=== PATIENT | male | born 1940 | race Caucasian/White ===

== ENCOUNTER 2018-12-29 21:14 | Inpatient (IN) | payer MEDICARE ==
[2018-12-30] MEDS ORDERED: Magnesium Hydroxide (MOM) 30 mL UDC PO PRN (05:31)
[2018-12-30] MEDS ORDERED: Maalox 30 mL Cup PO PRN (05:31)
[2018-12-30 05:33] VITALS: BP 167/69
[2018-12-30] MEDS: Multivitamin Tab PO SCH (09:50)
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
[2018-12-31] MEDS: Multivitamin Tab PO SCH (08:47)
--- NOTE | 2018-12-31 20:42 | Progress Notes ---
DATE: 12/31/2018 SUBJECTIVE: A 78-year-old male coming in from [facility], aggressive behaviors, is confused, hallucinating, is more amenable to speaking with me today. He states that he was hallucinating and "seeing visions," down, depressed, withdrawn, states he is not doing well, seems to be mumbling to self. Poor memory, ruminative, asking same questions over and over again, and agitated at times. The patient wants to go, but it is unclear where he is going to go. States he went to a rehab in the past that he love, but states that it close down. Ongoing symptoms, safety concerns. Medications were noted. We will continue to monitor. [facility]# [id number]
[2019-01-01] MEDS ORDERED: GLUCAGON HCl 1 MG KIT IM PRN (09:05)
[2019-01-01] MEDS ORDERED: Dextrose 50% 50 mL Abboject IVP PRN (09:05)
[2019-01-01] MEDS: Multivitamin Tab PO SCH (09:24)
--- NOTE | 2019-01-01 09:40 | History & Physical ---
ADMIT DATE: PATIENT'S IDENTIFICATION: A 78-year-old male. REQUESTING PHYSICIAN: Dr. Capone. CHIEF COMPLAINT: Unable to get meaningful history from the patient. HISTORY OF PRESENT ILLNESS: A 78-year-old resident of group home has a significant history of CVA, dementia, gout, hyperlipidemia, BPH and hypertension, brought into the Emergency Room at [facility] for evaluation of increasing agitation and hallucination. The patient was evaluated by Emergency Room MD and subsequently advised to be admitted to [facility]. The patient is now being admitted. I am unable to get meaningful history from the patient and entire history I received from the patient, reviewing the chart, talking to the patient's assigned nurse. PAST MEDICAL HISTORY: Remarkable for: 1. Diabetes. 2. Hypertension. 3. Hyperlipidemia. 4. BPH. 5. Psychotic disorder. 6. Dementia. 7. DJD. 8. Gout. MEDICATIONS: At the time of transfer, Plavix, Actos, Jardiance, Lantus, fenofibrate, Zetia, Colcrys, acarbose, Seroquel, Lopressor, Apresoline, cilostazol, atorvastatin, and aspirin. SOCIAL HISTORY: The patient is a resident of group home. ALLERGIES: AMOXICILLIN, IODINE and PENICILLIN. FAMILY MEDICAL HISTORY: Unavailable. REVIEW OF SYSTEMS: I am unable to get meaningful history from the patient due to current condition. PHYSICAL EXAMINATION: GENERAL: The patient is alert, awake, lying in the bed without any acute distress. VITAL SIGNS: Temperature 97.6, pulse 68, respiratory rate 18, blood pressure 151/60. HEENT: Normocephalic, atraumatic. Extraocular muscles are intact. Tongue was pink and coated. Poor dentition noted. NECK: Supple. No JVD. No hepatojugular reflux. No lymphadenopathy, thyromegaly or carotid bruit. HEART: Both heart sounds are regular. No S3, no S4. CHEST AND LUNGS: Equal in expansion. No expiratory wheezing. ABDOMEN: Soft. No guarding, no rigidity. Bowel sounds present. No palpable mass. EXTREMITIES: No edema, no cyanosis. Peripheral pulses were +1. No calf tenderness. Diffuse osteoarthritic changes noted. NEUROLOGIC: The patient is alert, but not following any commands. Some degree of spasticity throughout upper and lower extremities noted with some weakness. Unable to do complete neurological examination due to current condition. AVAILABLE DIAGNOSTIC DATA: Performed at [facility] has been reviewed. Total time reviewing the records approximately 5 minutes. CLINICAL IMPRESSION: 1. Psychotic disorder exacerbation. 2. 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 3. Diabetes mellitus. 4. Hypertension. 5. Hyperlipidemia. 6. Gout. 7. Degenerative joint disease. 8. Benign prostatic hypertrophy. 9. High risk for fall. 10. History of carotid artery stenting. 11. Peripheral neuropathy. PLAN: Psychotic evaluation and management deferred to psychiatrist. The patient will be resumed on his home medication for underlying problem, which include hyperlipidemia, peripheral vascular disease, CVA, psychotic disorder, diabetes, hypertension along with peripheral vascular disease. The patient will be provided fall precautions, nutritional support, general nursing care along with appropriate home medication reconciliation. We will continue to follow this patient during his stay in the hospital. I sincerely thank you, Dr. Cristal Villanueva for giving me the opportunity to participate in patient of yours. JOB# [id number]
[2019-01-01] MEDS: INSULIN LISPRO SLIDING SCALE 100 UNITS/ML UNIT SUBQ SCH ×3 (11:38→21:22)
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
[2019-01-02] MEDS: INSULIN LISPRO SLIDING SCALE 100 UNITS/ML UNIT SUBQ SCH ×4 (06:54→21:50)
[2019-01-02] MEDS: Multivitamin Tab PO SCH (11:34)
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
[2019-01-03] MEDS: INSULIN LISPRO SLIDING SCALE 100 UNITS/ML UNIT SUBQ SCH ×5 (06:56→21:45)
[2019-01-03] MEDS: Multivitamin Tab PO SCH (09:29)
--- NOTE | 2019-01-03 22:15 | Progress Notes ---
DATE: 01/03/2019 SUBJECTIVE: The patient was seen and evaluated. The patient's chart reviewed. Nursing staff reported him mostly disengaged. Today on [id number] evaluation, the patient reports that he is waiting for the FBI agent to come and interview him. MENTAL STATUS EXAMINATION: Disorganized, suspicious. ASSESSMENT AND PLAN: Neurocognitive impairment, continues to present delusion as evident, reporting that he is waiting for the FBI to come and interview him. We will continue with primary psychiatric treatment plan and goals of medication. Continue to reach steady state. No oversedation, EPS or Tardive dyskinesia noted with Seroquel. JOB# [id number]
[2019-01-04] MEDS: INSULIN LISPRO SLIDING SCALE 100 UNITS/ML UNIT SUBQ SCH ×3 (06:48→17:45)
[2019-01-04] MEDS: Multivitamin Tab PO SCH (09:59)
--- NOTE | 2019-01-05 00:05 | Progress Notes ---
DATE: 01/04/2019 SUBJECTIVE: The patient in the hospital, mostly quiet, withdrawn, believing he is in "[facility]." He is not completing his sentences, pretty disorganized, not really able to tell me much information. He told Dr. Gordon he was waiting for the FBI yesterday. Ongoing delusions, perceptual disturbances, still on dosing of Seroquel. PLAN: We will continue to monitor. I will slowly titrate the dose given his ongoing psychotic symptoms, paranoias. JOB# [id number]
[2019-01-05] MEDS: INSULIN LISPRO SLIDING SCALE 100 UNITS/ML UNIT SUBQ SCH ×4 (06:42→20:51)
[2019-01-05] MEDS: Multivitamin Tab PO SCH (08:35)
[2019-01-06] MEDS: Hydrocodone/APAP 10 mg/325 mg Tab PO PRN ×2 (00:08→21:33)
[2019-01-06] MEDS: INSULIN LISPRO SLIDING SCALE 100 UNITS/ML UNIT SUBQ SCH ×5 (06:41→20:36)
[2019-01-06] MEDS: Multivitamin Tab PO SCH (09:15)
--- NOTE | 2019-01-06 13:59 | Diagnostic Imaging Report ---
Right knee (3 views) HISTORY: Pain, trauma Medial joint space narrowing. Hypertrophic degenerative spur formation seen about the medial femoral condyle. Spur formation also noted about the medial lateral tibial plateau regions. Degenerative changes noted along the posterior margin of the patella. Question joint effusion. Chondrocalcinosis is seen most likely degenerative. Extensive severe vascular calcification is noted. No acute abnormalities. No fractures. IMPRESSION: 1. Relatively severe degenerative joint disease 2. Atherosclerotic vascular changes 3. Question joint effusion
--- NOTE | 2019-01-06 13:59 | Diagnostic Imaging Report ---
Left knee (3 views) HISTORY: Pain, trauma Degenerative changes are seen with hypertrophic spur formation noted about the lateral femoral condyle. Due to flexion, limited evaluation of the joint spaces. No acute abnormalities. No fractures. Severe extensive vascular calcification is noted. IMPRESSION: 1. Limited exam due to flexion 2. No acute bony abnormalities 3. Relatively severe degenerative joint disease 4. Extensive atherosclerotic vascular calcification
--- NOTE | 2019-01-06 16:49 | Progress Notes ---
DATE: SUBJECTIVE: Chart reviewed and the patient interviewed. Also discussed the patient's condition with the staff and reviewed records and labs. The patient seems to be slightly calmer and he is still trying to get out of bed, but not as much. The patient also is still agitated at times, but in general, he tends to stay by himself. Also still has disorganized thoughts and unable to make his needs known. He also is still during my interview was pointing out to imaginary objects towards the door. Otherwise, the patient is compliant with taking medications and no side effects of medications. ASSESSMENT: The patient is still psychotic and confused. TREATMENT PLAN: Continue to monitor behavior and condition closely. The patient also continues to take Seroquel in a dose of 37.5 mg twice a day with no side effects. We will continue same dose and continue adjusting medications and work on behavioral modification. JOB# [id number]
--- NOTE | 2019-01-06 22:26 | Progress Notes ---
DATE: 01/06/2019 PSYCHIATRIC PROGRESS NOTE SUBJECTIVE: Chart reviewed and the patient interviewed. Also discussed the patient's condition with the staff and reviewed records and labs. The patient continues to be confused and is still rambling and has disorganized thoughts. The patient also is nonsensical and still forgetful and is delusional. Also, needs redirections and needs close monitoring because of disorganized thoughts. The patient also is complaining of pain in both knees with swelling in both knees. The stat x-ray was done yesterday and came back negative; no fracture or injuries to both knees. ASSESSMENT: The patient is still confused and psychotic. TREATMENT PLAN: Continue to monitor his behavior and condition closely. Also, we will increase Seroquel to 50 mg twice a day and we will continue to follow up closely. [facility]# [id number]
--- NOTE | 2019-01-07 01:38 | Progress Notes ---
DATE: 01/06/2019 MEDICAL PROGRESS NOTE PATIENT'S IDENTIFICATION: A 78-year-old male. SUBJECTIVE: The patient seen and examined. I received a call last night that the patient was having excruciating pain on his both knees. Apparently, there was no history of fall. X-rays of both knees were ordered, which were unremarkable for any fracture. The patient is currently lying comfortably. The movement of his both lower extremities, the patient complains of pain. The patient remained hemodynamically stable and there was no active bleeding. The patient was recently placed on antibiotic for urinary tract infection. ALLERGIES: The patient is allergic to PENICILLIN. PHYSICAL EXAMINATION: VITAL SIGNS: Temperature 98.9, pulse is 92, respiratory rate 18, blood pressure 158/85. HEENT: No facial asymmetry. NECK: Supple, no JVD. HEART: Regular. CHEST: Lung equal in expansion, no expiratory wheezing. ABDOMEN: Soft. Bowel sounds are present. No palpable mass. EXTREMITIES: Bilateral knee swelling noted more on the left than right with some old bruising also noted. No calf tenderness. LABORATORY DATA: None. X-rays of both knees, preliminary report is no fracture. CLINICAL IMPRESSION: 1. Bilateral knee pain in the view of gout history and no apparent fall, cannot rule out acute gout since the fracture is ruled out. 2. Urinary tract infection. 3. Hypertension. 4. Hyperlipidemia. 5. Dementia. 6. Psychotic disorder. PLAN: In the view of his acute bilateral knee pain, I will hold his Colcrys and put him on prednisone for 5 days. We will monitor the blood sugar while the patient is on prednisone and we will reevaluate the patient later. The patient will have ESR, uric acid, BMP, and magnesium will be checked as well. We will continue other medication as the patient is receiving and will continue to follow this patient during the stay in this hospital. Medication list has been reviewed with assigned nurse as well. Treatment plan has been discussed. JOB# [id number]
[2019-01-07] MEDS: INSULIN LISPRO SLIDING SCALE 100 UNITS/ML UNIT SUBQ SCH ×4 (06:36→20:42)
[2019-01-07] MEDS: Multivitamin Tab PO SCH (08:33)
[2019-01-07] MEDS: Hydrocodone/APAP 10 mg/325 mg Tab PO PRN (20:48)
--- NOTE | 2019-01-07 21:09 | Progress Notes ---
DATE: 01/07/2019 Chart reviewed and the patient interviewed. Also, discussed the patient's condition with the staff and reviewed records and labs. The patient continues to be confused and restless. The patient also still seems to be paranoid, and he is still unable to carry on coherent conversation and is nonsensical during the interview. The patient also is still complaining of pain in his knees, but not as before, and Dr. Simmons ordered to check his uric acid to rule out gout and ordered more labs yesterday and results are pending. At the same time, the patient seems to be slightly calmer since the Seroquel increased to 50 mg twice a day. We will continue same dose, and we will continue to follow up closely. JOB# [id number]
[2019-01-08] MEDS: Hydrocodone/APAP 10 mg/325 mg Tab PO PRN (06:31)
[2019-01-08] MEDS: INSULIN LISPRO SLIDING SCALE 100 UNITS/ML UNIT SUBQ SCH ×4 (06:32→20:30)
[2019-01-08] MEDS: Multivitamin Tab PO SCH (08:25)
[2019-01-08] MEDS ORDERED: Insulin Glargine 100 units/ml 10ml Vial SUBQ SCH (21:00)
--- NOTE | 2019-01-09 02:02 | Progress Notes ---
DATE: SUBJECTIVE: Chart reviewed and the patient interviewed. Also discussed the patient's condition with the staff and reviewed records and labs. The patient is still confused and is still restless. Also, still trying to get out of the bed in the middle of the night, exposing himself to dangers of falling down. He also is still complaining of pain in his knees. Otherwise, the patient is compliant with taking his medications. He is still talking to self. ASSESSMENT: The patient is still confused and psychotic. TREATMENT PLAN: Continue to monitor behavior and condition closely. Also, continue Seroquel 50 mg twice a day and continue to follow up closely. JOB# [id number]
[2019-01-09] MEDS: INSULIN LISPRO SLIDING SCALE 100 UNITS/ML UNIT SUBQ SCH ×4 (06:59→21:01)
[2019-01-09] MEDS: Multivitamin Tab PO SCH (08:43)
[2019-01-09] MEDS: Insulin Glargine 100 units/ml 10ml Vial SUBQ SCH (21:02)
--- NOTE | 2019-01-09 22:49 | Progress Notes ---
DATE: SUBJECTIVE: Chart reviewed and patient interviewed. Also discussed patient's condition with the staff and reviewed records and labs. The patient still has periods of irritability and confusion. The patient also is still rambling. The patient also is complaining of pain in his knees. He also still thinks that he is in a [employer] party and still delusional. Otherwise, patient is compliant with taking medications with no side effects of medications. ASSESSMENT: The patient is still delusional and confused and needs close monitoring. TREATMENT PLAN: Continue monitoring behavior and condition and continue to follow up. JOB# [id number]
[2019-01-10] MEDS: INSULIN LISPRO SLIDING SCALE 100 UNITS/ML UNIT SUBQ SCH ×4 (06:48→21:10)
[2019-01-10] MEDS: Multivitamin Tab PO SCH (08:40)
[2019-01-10] MEDS: Insulin Glargine 100 units/ml 10ml Vial SUBQ SCH (21:09)
[2019-01-11] MEDS: INSULIN LISPRO SLIDING SCALE 100 UNITS/ML UNIT SUBQ SCH ×4 (06:40→20:57)
--- NOTE | 2019-01-11 07:56 | Progress Notes ---
DATE: SUBJECTIVE: Chart reviewed and the patient interviewed. Also discussed the patient's condition with the staff and reviewed records and labs. The patient is still confused and anxious. The patient also still has episodes of trying to get out of bed and exposing himself to dangers of falling. He also still monitored closely because of his paranoia and restlessness. Otherwise, the patient continued to take Seroquel 50 mg twice a day with no side effects. ASSESSMENT: The patient is still confused and agitated. TREATMENT PLAN: Continue monitoring behavior and medications and working on discharge plans. JOB# [id number]
[2019-01-11] MEDS: Multivitamin Tab PO SCH (08:21)
[2019-01-11] MEDS: Insulin Glargine 100 units/ml 10ml Vial SUBQ SCH (20:56)
--- NOTE | 2019-01-11 21:28 | Progress Notes ---
DATE: 01/11/2019 SUBJECTIVE: Chart reviewed and the patient interviewed. Also discussed the patient's condition with the staff and reviewed records and labs. The patient continued to be confused and is still actively hallucinating. The patient also is yelling and screaming and have difficulty following directions and did not sleep most of last night. The patient also is still in irritable and angry mood. The patient also having difficulty expressing himself or seeing his needs. Otherwise, the patient continued to comply with taking her medications with no side effects. The patient is disheveled and poor eye contact and angry and restless. ASSESSMENT: The patient is still psychotic and agitated and still can be dangerous to others. TREATMENT PLAN: Continue to monitor his condition and behavior closely. Also, increase Seroquel to 37.5 mg twice a day and 100 mg at bedtime. Hopefully, that will help the patient sleep better at night and to be calmer during the day and we will continue to follow up. Also, working on discharge plans with top case assembler. JOB# [id number]
--- NOTE | 2019-01-11 22:58 | Progress Notes ---
DATE: 01/11/2019 PATIENT'S IDENTIFICATION: A 78-year-old. SUBJECTIVE: The patient seen and examined. The patient is sitting in the chair. The patient does not provide a meaningful history. Discussed with nursing staff, no new event has been reported. The patient's blood sugar morning is 139. PHYSICAL EXAMINATION: VITAL SIGNS: Today temperature 98, pulse is 71, respiratory rate 18, blood pressure 103/63. HEENT: No facial asymmetry. NECK: Supple, no JVD. HEART: Both heart sounds are regular. CHEST AND LUNGS: Equal in expansion, no expiratory wheezing. ABDOMEN: Soft. Bowel sounds present. No palpable mass. EXTREMITIES: No edema. NEUROLOGIC: Alert, awake, follows commands. CLINICAL AVAILABLE DIAGNOSTIC DATA: Blood sugar this morning is 139. Chemistry panel remarkable for blood sugar of 290, BUN and creatinine is 34 and creatinine is 1.21, test was done on 01/06/2019. AST, ALT, SGOT, SGPT is 175, 108. Uric acid is 2.4, magnesium 1.5, ESR 105. CLINICAL IMPRESSION: 1. Acute bilateral knee pain significantly improved with prednisone therapy. The patient currently remained asymptomatic. 2. Diabetes mellitus with elevated blood sugar. 3. Hypertension. 4. Abnormal liver function tests. 5. Urinary tract infection. 6. Hyperlipidemia. 7. Degenerative joint disease. 8. Psychotic disorder. 9. Abnormal liver function tests. PLAN: Discontinue Lipitor in the presence of abnormal liver function tests for now. Continue other medication as prescribed. The patient's uric acid was reported normal at this time. I will hold the patient's on allopurinol therapy for now. The patient will be followed by us during his stay in the hospital. We will continue medications for underlying problem. Continue aspirin, Plavix, Lantus, Humalog insulin, Ativan, Cozaar, Toprol, Macrobid and Flomax for now. Psychiatric evaluation and management deferred to psychiatrist. Care plan has been reviewed and discussed with staff. JOB# [id number]
[2019-01-12] MEDS: INSULIN LISPRO SLIDING SCALE 100 UNITS/ML UNIT SUBQ SCH ×4 (06:42→20:45)
[2019-01-12] MEDS: Multivitamin Tab PO SCH (09:11)
[2019-01-12] MEDS: Insulin Glargine 100 units/ml 10ml Vial SUBQ SCH (20:45)
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
[2019-01-13] MEDS: INSULIN LISPRO SLIDING SCALE 100 UNITS/ML UNIT SUBQ SCH ×4 (07:03→20:58)
[2019-01-13] MEDS: Multivitamin Tab PO SCH (09:48)
[2019-01-13] MEDS ORDERED: Hydrocodone/APAP 10 mg/325 mg Tab PO PRN (19:19)
[2019-01-13] MEDS: Insulin Glargine 100 units/ml 10ml Vial SUBQ SCH (20:57)
--- NOTE | 2019-01-13 22:26 | Progress Notes ---
DATE: 01/13/2019 SUBJECTIVE: Chart reviewed and the patient interviewed. Also discussed the patient's condition with the staff and reviewed records and labs. The patient continued to be confused and restless. The patient also still has disorganized thoughts. His thought processes are circumstantial and flight of ideas and nonsensical. Also is still restless. The patient also is still having mood swings. The patient also did not sleep most of last night. On the other hand, the patient is complaining of pain in his knees are less and now he is off [place]. ASSESSMENT: The patient is still agitated and irritable and angry mood. TREATMENT PLAN: Continue to monitor behavior and condition closely. Also, continue working on his poor impulse control. Also, we will change Seroquel to 37.5 mg twice a day and 125 mg at bedtime to help with his agitation and irritability as well as to help with his insomnia. [facility]# [id number]
[2019-01-14] MEDS: INSULIN LISPRO SLIDING SCALE 100 UNITS/ML UNIT SUBQ SCH ×4 (06:44→21:06)
[2019-01-14] MEDS: Multivitamin Tab PO SCH (08:54)
[2019-01-14] MEDS: Insulin Glargine 100 units/ml 10ml Vial SUBQ SCH (21:05)
--- NOTE | 2019-01-14 23:12 | Progress Notes ---
DATE: 01/14/2019 Chart reviewed and the patient interviewed. Also discussed the patient's condition with the staff and reviewed records and labs. The patient continued to be confused and is still suspicious and paranoid. The patient also has unpredictable behavior. The patient slept only 4 hours last night and woke up yelling and screaming and agitating other patients. The patient also is still having mood swings. Otherwise, the patient is compliant with taking his medications. ASSESSMENT: The patient is still aggressive and is still in angry mood. TREATMENT PLAN: Continue monitoring behavior and condition closely and continue adjusting psychotropic medications. Also, working on behavioral modification and has poor impulse control. JOB# [id number]
[2019-01-15] MEDS: INSULIN LISPRO SLIDING SCALE 100 UNITS/ML UNIT SUBQ SCH ×4 (06:31→21:12)
[2019-01-15] MEDS: Multivitamin Tab PO SCH (09:03)
[2019-01-15] MEDS ORDERED: Menthol/Zinc Oxide Oint 113gm Tube TP PRN (16:55)
[2019-01-15] MEDS: Insulin Glargine 100 units/ml 10ml Vial SUBQ SCH (21:11)
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
[2019-01-16] MEDS: INSULIN LISPRO SLIDING SCALE 100 UNITS/ML UNIT SUBQ SCH ×4 (06:33→20:42)
[2019-01-16] MEDS: Multivitamin Tab PO SCH (09:54)
[2019-01-16] MEDS: Insulin Glargine 100 units/ml 10ml Vial SUBQ SCH (20:42)
--- NOTE | 2019-01-17 04:13 | Progress Notes ---
DATE: 01/16/[address] Villanueva. SUBJECTIVE: Overnight nursing staff reporting he continues to be easily unpredictable, needs a lot of redirection, easily irritable and easily agitated. Today on [id number] evaluation, he is observed to be screaming and yelling in the Mary chair without stimulation. Upon approach, he keeps screaming, yelling, needs a lot of redirection to maintain a simple conversation. No complications or side effects to medications. MENTAL STATUS EXAMINATION: Easily irritable, agitated, disorganized. ASSESSMENT AND PLAN: The patient continues to present easily irritable, agitated and angry. We will continue with the current medication regimen, which includes Seroquel that was recently increased to target the patient unpredictable, labile and disorganized thought process. We will continue with primary psychiatrist's treatment plan and goals as medications continue to reach steady state to target the patient's symptoms. JOB# [id number]
[2019-01-17] MEDS: INSULIN LISPRO SLIDING SCALE 100 UNITS/ML UNIT SUBQ SCH ×4 (06:55→21:05)
[2019-01-17] MEDS: Multivitamin Tab PO SCH (09:31)
[2019-01-17] MEDS: Insulin Glargine 100 units/ml 10ml Vial SUBQ SCH (21:04)
--- NOTE | 2019-01-18 01:06 | Progress Notes ---
DATE: 01/17/2019 SUBJECTIVE: The patient was seen and evaluated. The patient's chart reviewed. Covering for Dr. Villanueva. The patient today on [id number] evaluation reports "The women are beautiful." When I discussed with him to further elaborate, he just laughs inappropriately. MENTAL STATUS EXAMINATION: Irritable, intermittently yelling. ASSESSMENT PLAN: Dementia with behavior disturbances, who continues to makes recent bizarre statements, comments, agitated, unpredictable, disorganized thought process. We will continue with the recent addition of the Seroquel. JOB# [id number]
[2019-01-18] MEDS: INSULIN LISPRO SLIDING SCALE 100 UNITS/ML UNIT SUBQ SCH ×4 (06:40→20:52)
[2019-01-18] MEDS: Multivitamin Tab PO SCH (08:46)
--- NOTE | 2019-01-18 19:04 | Progress Notes ---
DATE: 01/18/2019 SUBJECTIVE: Chart reviewed and the patient interviewed. Also discussed the patient's condition with the staff and reviewed records and labs. The patient is less agitated and less irritable, but still confused. The patient also is still restless and still resisting care at times, but on the other hand seems to be slightly drowsy, especially during the nighttime. The patient also tends to isolate himself and he still needs lots of redirections. He is still hyperverbal and hyper-talkative, but in a confused way and thought processes are circumstantial with flight of ideas. ASSESSMENT: The patient is still confused and is still restless and agitated. TREATMENT PLAN: We will continue monitoring behavior and condition closely. Also, we will decrease Seroquel to 25 mg twice a day and 12.5 mg at bedtime and we will continue to follow up closely. JOB# [id number]
[2019-01-18] MEDS: Insulin Glargine 100 units/ml 10ml Vial SUBQ SCH (20:51)
[2019-01-19] MEDS: INSULIN LISPRO SLIDING SCALE 100 UNITS/ML UNIT SUBQ SCH ×4 (06:41→21:15)
[2019-01-19] MEDS: Multivitamin Tab PO SCH (08:40)
--- NOTE | 2019-01-19 13:57 | Progress Notes ---
DATE: SUBJECTIVE: Chart reviewed and the patient interviewed. Also discussed the patient's condition with the staff and reviewed records and labs. The patient continued to be extremely irritable and agitated. The patient also is still confused and argumentative with the staff and needs lots of redirections with difficulty following staff directions. The patient also is hyperverbal and hypertalkative. Otherwise, the patient was compliant with taking his medications. He still has difficulty sleeping at night. ASSESSMENT: The patient is still agitated and is still in angry and in irritable mood. TREATMENT PLAN: Continue to monitor his behavior and his condition closely. Also, we will increase Seroquel to 37.5 mg twice a day and 150 mg at bedtime and we will continue to follow up closely. [facility]# [id number]
[2019-01-19] MEDS: Insulin Glargine 100 units/ml 10ml Vial SUBQ SCH (21:15)
[2019-01-20] MEDS: INSULIN LISPRO SLIDING SCALE 100 UNITS/ML UNIT SUBQ SCH ×4 (06:49→21:56)
[2019-01-20] MEDS: Multivitamin Tab PO SCH (08:17)
[2019-01-20] MEDS: Insulin Glargine 100 units/ml 10ml Vial SUBQ SCH (21:55)
--- NOTE | 2019-01-20 22:00 | Progress Notes ---
DATE: SUBJECTIVE: Chart reviewed and the patient interviewed. Also discussed the patient's condition with the staff and reviewed records and labs. The patient still has difficulty sleeping at night and he did not sleep almost last night, though I increased his Seroquel. The patient also is still confused and he is also disoriented except to his name. The patient also is taking off his clothes and he is still yelling and screaming, and have disorganized thoughts and hyperverbal. Also, difficulty following any of staff directions. He also is still restless and he is still pounding on the chair and he is still unable to calm down in spite of staff trials. No physical issues or problems with the patient. ASSESSMENT: The patient is still agitated, aggressive and confused. TREATMENT PLAN: Continue Seroquel 25 mg twice a day and 50 mg at bedtime and we will add trazodone 50 mg at bedtime. Hopefully, that will help him to sleep better at night. Also, continue working on behavior modification and his extreme irritability. Also, working on discharge plans. [facility]# [id number]
[2019-01-21] MEDS: INSULIN LISPRO SLIDING SCALE 100 UNITS/ML UNIT SUBQ SCH ×4 (06:49→21:46)
[2019-01-21] MEDS: Multivitamin Tab PO SCH (09:19)
[2019-01-21] MEDS: Insulin Glargine 100 units/ml 10ml Vial SUBQ SCH (21:46)
--- NOTE | 2019-01-21 22:22 | Progress Notes ---
DATE: SUBJECTIVE: Chart reviewed and the patient interviewed. Also discussed the patient's condition with the staff and reviewed records and labs. The patient continued to be increasingly agitated and restless and he is still hyperverbal. The patient also is still trying to get out of bed, walking and exposing himself to dangers of falling. Also, is still confused and the staff noted that he is having bowel movements, then starts to play with his bowel movements. He is still having disorganized thoughts and his thought processes are with flight of ideas. ASSESSMENT: The patient is still confused and agitated. TREATMENT PLAN: We will continue to monitor his behavior and his condition closely. Also, it seems that the patient is sleeping more during the day and difficulty sleeping at night. We will increase trazodone to 100 mg at bedtime and we will decrease Seroquel to 12.5 mg twice a day and 150 mg at bedtime. Also, continue monitoring behavior closely and continue to follow up. JOB# [id number]
[2019-01-22] MEDS: INSULIN LISPRO SLIDING SCALE 100 UNITS/ML UNIT SUBQ SCH ×4 (06:30→20:26)
[2019-01-22] MEDS: Multivitamin Tab PO SCH (09:53)
[2019-01-22] MEDS: Insulin Glargine 100 units/ml 10ml Vial SUBQ SCH (20:27)
--- NOTE | 2019-01-23 02:08 | Progress Notes ---
DATE: SUBJECTIVE: Chart reviewed and the patient interviewed. Also discussed the patient's condition with the staff and reviewed records and labs. The patient still has episodes of restlessness and irritability. The patient also is still having severe mood swings. The patient also is interacting minimally with peers and with others. He also is still having episodes of severe agitation and needs lots of redirections. ASSESSMENT: The patient is still agitated and is still aggressive and needs placement. TREATMENT PLAN: Continue monitoring behavior and condition closely. Also, continue adjusting medications and work on behavioral modifications. JOB# [id number]
[2019-01-23] MEDS: INSULIN LISPRO SLIDING SCALE 100 UNITS/ML UNIT SUBQ SCH ×4 (07:03→20:20)
[2019-01-23] MEDS: Multivitamin Tab PO SCH (08:59)
--- NOTE | 2019-01-23 19:29 | Progress Notes ---
DATE: 01/23/2019 SUBJECTIVE: Chart reviewed and the patient interviewed. Also discussed the patient's condition with the staff and reviewed records and labs. The patient continued to be confused and is still disoriented. The patient also still has disorganized thoughts. The patient also still has episodes of yelling when awake and disturbing others. Also difficult to follow directions. ASSESSMENT: The patient is still agitated and psychotic. TREATMENT PLAN: Continue monitoring behavior and the condition closely. Also, continue adjusting psychotropic medications and working on behavioral modification. JOB# [id number]
[2019-01-23] MEDS: Insulin Glargine 100 units/ml 10ml Vial SUBQ SCH (20:20)
[2019-01-24] MEDS: INSULIN LISPRO SLIDING SCALE 100 UNITS/ML UNIT SUBQ SCH ×4 (06:41→20:17)
[2019-01-24] MEDS: Multivitamin Tab PO SCH (08:31)
[2019-01-24] MEDS: Insulin Glargine 100 units/ml 10ml Vial SUBQ SCH (20:18)
--- NOTE | 2019-01-24 20:25 | Progress Notes ---
DATE: SUBJECTIVE: Chart reviewed and the patient interviewed. Also discussed the patient's condition with the staff and reviewed records and labs. The patient continued to be confused and is still having disorganized thoughts. He also is still having episodes of yelling and screaming. Also, has difficulty following directions. Also, during interview, the patient is nonsensical and has disorganized thoughts with anger and irritability. Otherwise, the patient is compliant with medications, with no side effects. ASSESSMENT: The patient is still psychotic and agitated. TREATMENT PLAN: Continue Seroquel and trazodone same dose. Also, continue to monitor behavior and follow up closely. [facility]# [id number]
[2019-01-25] MEDS: INSULIN LISPRO SLIDING SCALE 100 UNITS/ML UNIT SUBQ SCH ×4 (06:42→20:38)
[2019-01-25] MEDS: Multivitamin Tab PO SCH (08:30)
[2019-01-25] MEDS: Venelex 60gm Tube TP SCH ×2 (13:55→15:00)
[2019-01-25] MEDS: Insulin Glargine 100 units/ml 10ml Vial SUBQ SCH (20:38)
--- NOTE | 2019-01-25 23:58 | Progress Notes ---
DATE: 01/25/2019 PSYCHIATRIC PROGRESS NOTE SUBJECTIVE: Chart reviewed and the patient interviewed. Also discussed the patient's condition with the staff, and reviewed records and labs. The patient is still anxious and agitated, but today he seems to be in a better mood, and he has been singing loud and not agitated. Also, it has been easier to redirect him. The patient also is less irritable and less angry. Otherwise, the patient is compliant with taking medications and the patient denies any side effects of medications. ASSESSMENT: The patient is less agitated and less irritable. TREATMENT PLAN: Plan is to work on the discharge plan that the patient is supposed to go to [facility], but we are still waiting for final approval. At the same time, we will continue current medications and treatment, and continue to follow up. Also, yesterday the patient was sedated and this stopped his medications, which seems that the patient is slightly manicky today. We will restart the patient up on his medications, but we will decrease Seroquel to 12.5 mg in the morning and 125 mg at bedtime, and continue to follow up. JOB# [id number]
[2019-01-26] MEDS: INSULIN LISPRO SLIDING SCALE 100 UNITS/ML UNIT SUBQ SCH ×2 (06:35→12:12)
[2019-01-26] MEDS: Multivitamin Tab PO SCH (08:32)
--- NOTE | 2019-01-26 10:37 | Discharge Summary ---
DATE OF DISCHARGE: 01/26/2019 AGE: 78. SEX: Male. PHYSICIAN: Dr. Villanueva. PRIMARY DIAGNOSIS: Unspecified psychosis. SECONDARY DIAGNOSIS: Dementia, moderate to severe, with psychotic features and behavioral disturbances. REASON FOR HOSPITALIZATION: The patient was admitted to the hospital from [facility] because of increased irritability and agitation and aggression with the staff and hallucinating. The patient also was not able to follow any directions. HOSPITAL COURSE: The patient continued to be in angry and in irritable mood. The patient was having episodes of yelling and screaming constantly and he was not cooperative with his treatment. He also was rambling and he was in irritable mood. The patient was started on Seroquel and dose kept adjusting up and down because of continued behavior or because of sedation and finally the patient was taking Seroquel 12.5 mg in the morning and 125 mg at bedtime and that helps the patient's behavior and the patient was not as agitated. One of the staff finally accepted the patient back and the patient was discharged from the hospital. The patient has had no major medical problems while in the hospital. AFTER DISCHARGE PLANS: The patient discharged from the hospital and the patient went back to [facility] with plans to follow him up there. EXPECTED OUTCOME AFTER DISCHARGE: Fair, if the patient continues to take his psychotropic medications and follow up with his discharge plans. [facility]# [id number]
[2019-01-26] MEDS: Venelex 60gm Tube TP SCH (11:00)
== END 2019-01-26 13:00 | DRG 885 ==
LOC: UNDOADMIN 23:24 → GERO 23:24
PROVIDERS: ADMIT Psychiatry & Neurology Psychiatry; ATTEND Psychiatry & Neurology Psychiatry
DX: F23 Brief psychotic disorder (principal); F01.51 Vascular dementia, unspecified severity, with behavioral disturbance; F39 Unspecified mood [affective] disorder; F41.9 Anxiety disorder, unspecified; M10.9 Gout, unspecified; F29 Unspecified psychosis not due to a substance or known physiological condition; E78.5 Hyperlipidemia, unspecified; N40.0 Benign prostatic hyperplasia without lower urinary tract symptoms; I10 Essential (primary) hypertension; M19.90 Unspecified osteoarthritis, unspecified site; E11.42 Type 2 diabetes mellitus with diabetic polyneuropathy; E11.51 Type 2 diabetes mellitus with diabetic peripheral angiopathy without gangrene; Z86.73 Personal history of transient ischemic attack (TIA), and cerebral infarction without residual deficits; Z79.4 Long term (current) use of insulin; Z91.81 History of falling
CPT/HCPCS: 73562-TC-LT; 73562-TC-RT; 82948-90; 83036-90; G0410; J1815; Z7610